=== PATIENT | male | born 1960 | race Caucasian/White ===

== ENCOUNTER 2024-07-25 22:04 | Emergency (ER) | payer MEDICAID, MEDICARE ==
[2024-07-25] MEDS: Lidocaine 1% 5 ML VIAL INJECT ONE (22:35)
== END 2024-07-25 22:55 | disposition home or self-care (01) ==
LOC: LB.ED 22:04
DX: S60.351A Superficial foreign body of right thumb, initial encounter (principal); E78.00 Pure hypercholesterolemia, unspecified; Z79.899 Other long term (current) drug therapy; W45.8XXA Other foreign body or object entering through skin, initial encounter; Y93.89 Activity, other specified
CPT/HCPCS: 99283; J2003